=== PATIENT | female | born 1955 | race Caucasian/White ===

== ENCOUNTER 2017-12-22 07:50 | Day surgery (SDC) | payer MEDICAID ==
[2017-12-04 12:31] VITALS: BMI 28.9
[2017-12-22] MEDS ORDERED: Lactated Ringer's 500 ML IV ONE (08:38)
[2017-12-22 09:05] VITALS: BP 156/75; PULSE 59; RESP 15; TEMP 96.9; O2SAT 99
[2017-12-22] MEDS ORDERED: Propofol 10 mg/ml Inj (20 ML) ONE (10:46)
== END 2017-12-22 11:34 | disposition home or self-care (01) ==
LOC: H.ENDO 07:50
PROVIDERS: ATTEND Internal Medicine Gastroenterology
DX: Z12.11 Encounter for screening for malignant neoplasm of colon (principal); J45.909 Unspecified asthma, uncomplicated; Z53.8 Procedure and treatment not carried out for other reasons; K30 Functional dyspepsia
CPT/HCPCS: 45378; J2001; J2704; J7120